=== PATIENT | female | born 1985 | race Caucasian/White ===

== ENCOUNTER 2020-07-22 07:51 | Emergency (ER) | payer MEDICAID ==
[~2020-07-22] VITALS: Ht 170.2 cm; Wt 54.4 kg
[~2020-07-22 07:51] MED LIST: TYLENOL EXTRA500 MG ORAL
[2020-07-22 08:03] VITALS: BP 99/52
--- NOTE | 2020-07-22 08:11 | NUR ---
ED Nurse Note: Patient from home and walked in due to diarrhea after cleansing her colon 4 days ago. Denies any abd pain. Pt has been taking fruits and high fiber diet as well. AAO x4, ambulatory.
[2020-07-22] MEDS ORDERED: LOPERAMIDE2 MG PO ×2 (08:20→08:22)
[2020-07-22 08:26] VITALS: BP 108/65
--- NOTE | 2020-07-22 08:26 | NUR ---
ER DISCHARGE NOTE: Patient is cleared to be discharged per ERMD, pt is aox4, on room air, with stable vital signs. pt was given dc and prescription instructions, pt was able to verbalize understanding, pt id band removed. pt is able to ambulate with steady gait. pt took all belongings.
--- NOTE | 2020-07-22 08:32 | Emergency Room Report ---
History of Present Illness General Chief Complaint: Diarrhea Source: Patient Present Illness HPI Disclaimer: Please note that this report is being documented using [employer]AG[employer] technology. This can lead to erroneous entry secondary to incorrect interpretation by the dictating instrument. HPI: 35-year-old female presents due to diarrhea. Patient took a colon cleanse of salt water approximately 4 days ago and then has been eating a diet of only fruit for the past 3 days and states she has had persistent diarrhea. He denies any pain fevers nausea or vomiting she denies any urinary complaints. Diarrhea is nonbloody. Allergies: Coded Allergies: No Known Allergies (Unverified , 11/15/18) COVID-19 Screening Contact w/high risk pt: No Experienced COVID-19 symptoms?: No COVID-19 Testing performed INFECTIOUS DISEASES PHYSICIAN: No Patient History Last Menstrual Period: 07/17/20 Reviewed Nursing Documentation: PMH: Agreed; PSxH: Agreed Nursing Documentation-PMH Past Medical History: No Stated History Review of Systems All Other Systems: negative except mentioned in HPI Physical Exam Vital Signs Date Time Temp Pulse Resp B/P (MAP) Pulse Ox O2 Delivery O2 Flow Rate FiO2 07/22/20 08:03 97.9 59 15 99/52 99 Room Air Sp02 EP Interpretation: reviewed, normal General Appearance: well appearing, no apparent distress Head: normocephalic, atraumatic Eyes: bilateral eye PERRL, bilateral eye EOMI ENT: hearing grossly normal, moist mucus membranes Neck: full range of motion, supple Respiratory: lungs clear, normal breath sounds, no rhonchi, no respiratory distress, no retraction, no wheezing Cardiovascular #1: normal peripheral pulses, regular rate, rhythm, no murmur Gastrointestinal: non tender, soft, non-distended, no guarding Neurologic: alert, oriented x3, no focal defects Skin: normal color, warm/dry Medical Decision Making Diagnostic Impression: Primary Impression: Diarrhea ER Course Differential diagnosis included but not limited to osmotic diarrhea, dietary induced diarrhea low suspicion for infectious process, colitis or other emergent medical process. Patient was not tachycardic she was afebrile she denied pain abdominal exam was benign. I do believe she is having diarrhea secondary to taking an osmotic laxative, and eating a high-fiber fruit only diet. She did request antidiarrheal medication so Imodium was given in the ER. She will be discharged home. I encouraged her to avoid further laxative intake, expanding her diet and avoiding fatty foods. She was stable for discharge, return precautions were given. Last Vital Signs Date Time Temp Pulse Resp B/P (MAP) Pulse Ox O2 Delivery O2 Flow Rate FiO2 07/22/20 08:03 97.9 59 15 99/52 (68) 99 Room Air Status: improved Disposition: HOME, SELF-CARE Condition: Stable Scripts Loperamide Hcl (LOPERAMIDE) 2 Mg Capsule 2 MG PO EVERY 8 HOURS PRN for diarrhea, #10 CAP Prov: Rolando Arana M.D. 07/22/20 Referrals: [facility] Juany Baltazar [facility] Patient Instructions: Diarrhea, Adult Additional Instructions: Patient is instructed to follow-up with her primary care doctor, primary care clinic or [facility] in 1 to 2 days. Patient instructed to return for any worsening symptoms or concerns. Rolando Arana M.D. Jul 22, 2020 08:32
== END 2020-07-22 08:26 | disposition home or self-care (01) ==
LOC: EMR 08:03
DX: R19.7 Diarrhea, unspecified (principal)
CPT/HCPCS: 99282